=== PATIENT | male | born 2000 | race Native Hawaiian/Other Pacific Islander ===

== ENCOUNTER 2021-10-18 16:52 | Emergency (ER) | payer MEDICAID, SELFPAY ==
[2021-10-18 17:03] VITALS: BP 134/85; PULSE 87; RESP 18; TEMP 36.9; O2SAT 98; BMI 37.7
--- NOTE | 2021-10-18 17:26 | ED_ITS ---
HPI - SOB/Dyspnea General Time Seen by Provider: 17:25 Date Seen: 10/18/21 Chief Complaint: Chest Pain Stated Complaint: Chest Pain Time Seen by Provider: 10/18/21 17:16 History of Present Illness HPI Narrative: Patient is a 21-year-old gentleman who comes in today with a week of nonproductive cough, viscous sputum and chest discomfort. Patient is had no sick exposures but did have COVID in the last several months. He quit smoking recently. He has had no fevers no chills no night sweats no hemoptysis. No other significant symptoms. He states his symptoms are moderate in intensity. Related Data Home oxygen amount: none Home Medications Medication Instructions Recorded Confirmed No Known Home Medications 10/18/21 10/18/21 Allergies Allergy/AdvReac Type Severity Reaction Status Date / Time No Known Drug Allergies Allergy Verified 10/18/21 17:09 Review of Systems Status of ROS: Reports: 10 or more systems reviewed and unremarkable except as noted in History and below [facility] Medical History Asthma Social History Smoking Status: Former smoker Do you use any of these nicotine containing products: None Second hand tobacco smoke exposure: No How often do you have a drink containing alcohol: monthly or less How often do you have six or more drinks on one occasion: Never AUDIT-C Alcohol total score: 1 Non-prescribed substance use: denies use service: No Exam Narrative: Exam Narrative: EXAM GENERAL: Patient appears comfortable and well. EYES: No scleral icterus. ENT: Tympanic membranes and oropharynx normal. THYROID: no thyroid nodules or thyromegaly. LYMPH: No supraclavicular or cervical lymphadenopathy. SKIN: Visible skin seen during exam normal or with benign process only. EXT: No dependent lower extremity pedal edema. HEART: Regular rate and rhythm with no murmurs, rubs, or gallops. LUNGS: Clear to auscultation bilaterally with no crackles or wheezes. ABD: Soft, non tender, non distended. PSYCH: Good eye contact, speech is not pressured. Const: Vital Signs, click to edit/add: Vital Signs - 24 hr 10/18/21 17:03 Temperature 98.5 F Pulse Rate [Right Pulse Oximeter] 87 Respiratory Rate 18 Blood Pressure [Ri ght Upper Arm] 134/85 Pulse Oximetry 98 Course Vital Signs Vital signs: Initial Vital Signs Temperature 98.5 F 10/18/21 17:03 Temperature Source Temporal Artery Scan 10/18/21 17:03 Pulse Rate 87 10/18/21 17:03 Pulse Rhythm 10/18/21 17:03 Respiratory Rate 18 10/18/21 17:03 Blood Pressure 134/85 10/18/21 17:03 Blood Pressure Mean 101 10/18/21 17:03 Blood Pressure Position Sitting 10/18/21 17:03 Pulse Oximetry 98 10/18/21 17:03 Oxygen Delivery Method 10/18/21 17:03 Vital Signs Temperature 98.5 F 10/18/21 17:03 Pulse Rate 87 10/18/21 17:03 Respiratory Rate 18 10/18/21 17:03 Blood Pressure 134/85 10/18/21 17:03 Pulse Oximetry 98 10/18/21 17:03 Temperature 98.5 F 10/18/21 17:03 Pulse Rate 87 10/18/21 17:03 Respiratory Rate 18 10/18/21 17:03 Blood Pressure 134/85 10/18/21 17:03 Pulse Oximetry 98 10/18/21 17:03 Discharge Plan Discharge Clinical Impression: Bronchitis Instructions: Acute Bronchitis (ED) Activity Level: No Restrictions Discharge Diet: Regular Prescriptions: No Action No Known Home Medications 0RF Follow Up/Referrals: Provider,Not a Local [Primary Care Provider] -
== END 2021-10-18 18:06 ==
LOC: ED 18:05
PROVIDERS: Emergency Provider Internal Medicine; PCP Family Medicine
DX: J20.9 Acute bronchitis, unspecified (principal)
CPT/HCPCS: 99282; 99283

== ENCOUNTER 2022-04-16 22:09 | Emergency (ER) | payer MEDICAID, SELFPAY ==
[2022-04-16 22:22] VITALS: BP 157/84; PULSE 82; RESP 18; TEMP 36.6; O2SAT 99; BMI 33.0
--- NOTE | 2022-04-16 22:33 | CRLHL7_ITS ---
For Patients: As a result of the Century Cures Act, medical imaging exams and procedure reports are released immediately into your electronic medical record. You may view this report before your referring provider. If you have questions, please contact your health care provider. Indication: Right ankle pain. Technique: Right ankle 3 views. Comparison: None. Findings: Tiny avulsion fracture of the lateral malleolus. Lateral malleolar soft tissue swelling. Bony mineralization is age appropriate. Tiny avulsion fracture of the lateral malleolus. Dictated by Bhavin Godoy MD @ 04/17/2022 12:05:42 AM (Electronically Signed)
--- NOTE | 2022-04-16 22:40 | ED_ITS ---
HPI - General Adult General Chief complaint: Extremity Pain/Injury, Lower Stated complaint: Right Leg Injury - misstep Time Seen by Provider: 04/16/22 22:18 Source: patient Mode of arrival: ambulatory Limitations: no limitations History of Present Illness HPI narrative: 21-year-old male with no significant chronic medical problems presents the emergency department after he slipped down a flight of stairs. He was carrying an air conditioner unit, a window unit out of his bedroom into storage down stairs. States that he was going down the stairs when he misstepped, causing him to fall down about 2/3 of the flight of stairs. He skidded down on his back and butt and did not hit his head or lose consciousness. He had immediate pain in the right ankle and foot area and has had no other areas of pain since. He was able to get himself up the stairs hopping on his left foot but states that he cannot bear weight on the right foot. He has not tried taking any Tylenol or ibuprofen to help with his symptoms. He denies any intoxication, alcohol or other illicit drugs. No prior history of ankle surgery, no other areas of injury tonight. Denies headache, neurological changes. When asked him to point to the area of maximal pain, he points to the entire ankle and does not localize. ROS is negative for other generalized, musculoskeletal, neurological, skin, hematological concerns. Past medical history he states benign, no major long-term health problems, no recent surgeries, no long-term medications, no allergies. Socially with no impairing substances. Related Data Home Medications Medication Instructions Recorded Confirmed No Known Home Medications 10/18/21 04/16/22 Allergies Allergy/AdvReac Type Severity Reaction Status Date / Time No Known Drug Allergies Allergy Verified 04/16/22 22:25 [facility] Medical History Asthma Surgical History No significant past surgical history Social History Smoking Status: Former smoker Do you use any of these nicotine containing products: None Second hand tobacco smoke exposure: No How often do you have a drink containing alcohol: monthly or less How often do you have six or more drinks on one occasion: Never AUDIT-C Alcohol total score: 1 Non-prescribed substance use: denies use service: No Exam Const: Vital Signs, click to edit/add: Vital Signs - 24 hr 04/16/22 22:22 04/16/22 22:54 04/17/22 00:00 Temperature 97.9 F 97.9 F 97.9 F Pulse Rate [Right Pulse Oximeter] 82 79 Respiratory Rate 18 18 Blood Pressure [Le ft Upper Arm] 157/84 H 145/78 H Pulse Oximetry 99 99 Oxygen Delivery Me thod Room Air Room Air Documenting provider has reviewed patient's vital signs: yes Common normals: no apparent distress and alert General appearance: cooperative and well kempt Orientation/consciousness: Yes awake Other: Appears to be in moderate pain but very cooperative, good historian. HENMT: Common normals: normocephalic Head and scalp: normocephalic Face and sinus: normal facial exam Eye: Common normals: PERRL and EOMs intact bilaterally Pupil: PERRL Other: Normal visual gaze and tracking Neck & C-Spine: Common normals: full ROM Resp: Common normals: normal respiratory effort, no use of accessory muscles and clear to auscultation bilaterally Effort & inspection: able to speak in complete sentences Auscultation: clear to auscultation bilaterally Cardio: Common normals: regular rate, regular rhythm, S1 normal heart sound, S2 normal heart sound, no murmurs and peripheral pulses 2+ throughout Rate: regular rate Rhythm: regular rhythm Heart sounds: S1 normal and S2 normal Peripheral pulses: pulses 2+ throughout Extremity: Other: Left ankle with normal range of motion, no tenderness, no swelling. Left foot normal as well. Right foot with normal range of motion in toes, no tenderness or deformities to the MTP joints. But at the ankle there is marked swelling, bruising and effusion already setting in. The lateral malleolus is more tender than the medial malleolus but both are tender. There is also swelling at the midfoot, dorsally, no tenderness on the plantar surface, heel or ball of the foot. No tenderness at the 5th MTP. Neuro: Sensorium/orientation: awake and alert Speech: speech normal Psych: Appearance: well kempt Attitude: engaged Insight: insight good Judgement: judgment good Skin: Common normals: no rashes or lesions noted General skin exam: no rashes or lesions noted Course Vital Signs Vital signs: Initial Vital Signs Temperature 97.9 F 04/16/22 22:22 Temperature Source Temporal Artery Scan 04/16/22 22:22 Pulse Rate 82 04/16/22 22:22 Pulse Rhythm 04/16/22 22:22 Pulse Strength 3+ Normal 04/16/22 22:22 Respiratory Rate 18 04/16/22 22:22 Blood Pressure 157/84 H 04/16/22 22:22 Blood Pressure Mean 108 04/16/22 22:22 Blood Pressure Position Supine 04/16/22 22:22 Pulse Oximetry 99 04/16/22 22:22 Oxygen Delivery Method 04/16/22 22:22 Vital Signs Temperature 97.9 F 04/16/22 22:22 Pulse Rate 82 04/16/22 22:22 Respiratory Rate 18 04/16/22 22:22 Blood Pressure 157/84 H 04/16/22 22:22 Pulse Oximetry 99 04/16/22 22:22 Oxygen Delivery Method 04/16/22 22:22 Temperature 97.9 F 04/17/22 00:00 Pulse Rate 79 04/17/22 00:00 Respiratory Rate 18 04/17/22 00:00 Blood Pressure 145/78 H 04/17/22 00:00 Pulse Oximetry 99 04/17/22 00:00 Oxygen Delivery Method 04/17/22 00:00 Medical Decision Making MDM Narrative Medical decision making narrative: Strong suspicion for fracture based on presentation. X-rays ordered. He would like to be able to drive himself home, therefore will dose ibuprofen 800 mg p.o. x1 rather than narcotic medication. Of note, it is snowing and the roads arc fairly slick, certainly no impairing substances would be allowed [facility]. He is agreeable to this. Awaiting x-ray. Discussed findings with patient: Appreciate a tiny chip fracture of the fibula, lots of soft tissue swelling which would make me concerned for a ligamentous tear as well. Discussed with patient. Crutches, 2 weeks of nonweightbearing, Ortho follow-up recommended. Work ability note completed. Discussed Tylenol and ibuprofen as needed for pain, he verbalizes understanding and agreement. ortho referral placed Imaging Data Ankle x-ray: My impression: Tiny chip fracture of distal fibula, malleolus area Radiologist's impression: Findings: Tiny avulsion fracture of the lateral malleolus. Lateral malleolar soft tissue swelling. Bony mineralization is age appropriate. Tiny avulsion fracture of the lateral malleolus. Discharge Plan Discharge Clinical Impression: Fibula fracture Patient Disposition: Home, Self-Care Condition: Stable Instructions: Leg Fracture (ED) Additional Instructions: There is a very mild chip fracture in your outer ankle. This is on the nonweightbearing part of the ankle and should heal without difficulty. Based on the amount of swelling and bruising, I do suspect that there is a ligament injury as well. I would not see this on x-ray but can be confirmed on MRI. Because you are otherwise young and healthy, it will likely heal without any other interventions, so I do not recommend that we hall into an MRI at this time. Your given ibuprofen for pain, you may continue taking 600 mg every 6 hours, your next dose is eligible at 5:00 a.m.. You may take Tylenol 1000 mg every 6 hours, any time now for pain. You may remove the brace that we applied and put ice on the outer ankle for 15 minutes every 4 hours while you are awake. It is okay to remove the brace to shower. I want you on crutches when you are up and moving for the next [address] referral for you to follow-up with the orthopedic team. Because of the holiday, they are not in the office today but should call you within a few days to firm up this appointment. They will determine your return to work status. I have given you a form that will be in effect for the next 2 weeks that basically says you can do seated work only. It is your employers duty to find appropriate work for you during your time of injury. They may not have available work and are not required to fulfill paying you if you cannot fulfill your typical duties Activity Level: Light activity, No Weight Bearing and Use Crutches Discharge Diet: Regular Prescriptions: No Action No Known Home Medications Follow Up/Referrals: Rupert Capps MD [Staff Physician] - 2 Weeks (First available Ortho, 2 weeks) Oleg Brady MD [Primary Care Provider] - Stand Alone Forms: [employer] Info Instructions
[2022-04-16 22:54] VITALS: TEMP 36.6
[2022-04-16] MEDS: IBUPROFEN 400 MG TABLET 800 MG PO (22:54)
[2022-04-17] VITALS: BP 145/78; PULSE 79; RESP 18; TEMP 36.6; O2SAT 99
[2022-04-17 01:07] VITALS: BP 145/78; PULSE 79; RESP 18; TEMP 36.6
== END 2022-04-17 01:07 | disposition home or self-care (01) ==
PROVIDERS: Emergency Provider Family Medicine; PCP Family Medicine
DX: S82.64XA Nondisplaced fracture of lateral malleolus of right fibula, initial encounter for closed fracture (principal); W10.9XXA Fall (on) (from) unspecified stairs and steps, initial encounter
CPT/HCPCS: 73610; 99283; 99284; A9270

== ENCOUNTER 2025-03-15 21:07 | Emergency (ER) | payer BC, SELFPAY ==
--- OUTSIDE RECORDS SUMMARY | 2025-03-15 21:08 | XMS_ITS | Clinical Summary ---
Author Organization [facility] Address [address] [place] [id number] Care Team Providers Care Vending Route Driver Name Role Phone Clinic, No Pcp Or Primary Care Provider Unavaila ble Allergies No known active allergies Medications albuterol HFA (PRO-AIR; VENTOLIN; PROVENTIL) 90 mcg/actuation inhalerIndicat ions:Exercise- induced asthma (HC) Inhale 1-2 Puffs by mouth every 4 hours if needed for Shortness of Breath 1st choice (before exercise). 1 Each 1 Active hydrocortisone (ANUSOL-HC SUPPOSITORY) 25 mg suppositoryInd ications:Hemor rhoids, internal Insert 1 Suppository (25 mg) rectally two times daily. 5 Suppository 2 Active psyllium powdIndication s:Hemorrhoids, internal Mix 1 tsp in liquid then take by mouth once daily if needed for Constipation. 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 Overview (08/27/2008): In process of ADHD evaluation Resolved Problems Problem Noted Date Diagnosed Date Resolved Date Depression, major, single episode, severe 06/21/2021 08/08/2022 Immunizations Immunization Administration Dates Next Due COVID-19 vaccine (MebelramaBio NTech 30mcg/0.3mL) PF, MDV 02/25/2021,12/17/2020 DTaP 12/27/2005, 2,01/21/2001,2000,2000 HIB-HepB (Comvax) 11/12/2001,2000,09/22/19 Inactivated Polio Vaccine 12/27/2005,04/2000,2000,2000 Influenza, IIV4 01/29/2019 MMR 12/27/2005,07/29/2001 Pneumococcal conj 7-Valent ( Prevnar 7) 07/29/2001,04/22/2001,01/21/2001,2000,2000 Tdap 12/25/2012 Varicella Vaccine 12/27/2005,07/29/2001 Family History Medical History Relation Name Comments Good Health Father Good Health Mother Diabetes type II Paternal Grandfather Relation Name Status Comments Brother 1 Alive Brother 2 Alive Brother 3 Alive Father Alive Mother Alive Paternal Grandfather Sister Alive Social History Tobacco Use Types Packs/Day Years Used Date Smoking Tobacco: Never Smokeless Tobacco: Never Tobacco Cessation:Counseling Given: Yes Alcohol Use Standard Drinks/Week Comments Yes 0 (1 standard drink = 0.6 oz pur e alcohol) occ PHQ-2 Answer Date Recorded PHQ-2 TOTAL SCORE 5 02/25/2021 Social Connections Answer Date Recorded Do you often feel lonely or isolated from those around you? 0 04/24/2024 Financial Resource Strain Answer Date R ecorded Difficulty of Paying Living Expenses 3 04/24/2024 Difficulty of Paying Living Expenses Not on file 04/24/2024 Food Insecurity Answer Date Recorded Do you worry your food will run out before you are able to buy more? 1 04/24/2024 Transportation Needs Answer Date Record ed Does lack of transportation keep you from medica l appointments? 1 04/24/2024 Does lack of transportation keep you from work, meetings or getting things that you need? 1 04/24/2024 Housing Stability Answer Date Recorded What is your housing situation today? 1 04/24/2024 Utilities Answer Date Recorded Do you have trouble paying f or utilities (for example, heat, electricity, water, phone)? 1 04/24/2024 Sex and Gender Information Value Date Recorded Sex Assigned at Not on file Legal Sex Male 5:43 AM DIRECTOR CRITICAL CARE Gender Identity Not on file Sexual Orientation Not on file Occupation Industry Job Start Date Job End Date Student Not on file Not on file Not on file Obstetrics History Last Filed Vital Signs Vital Sign Reading Time Taken Comments Blood Pressure 139/87 04/24/2024 10:35 AM DIRECTOR CRITICAL CARE Pulse 78 04/24/2024 10:35 AM DIRECTOR CRITICAL CARE Temperature 36.7 C (98 F) 12/21/2021 7:38 AM CDT Respiratory Rate - - Oxygen Saturation 99% 04/24/2024 10: 35 AM DIRECTOR CRITICAL CARE Inhaled Oxygen Concentration - - Weight 135.5 kg (298 lb 12.8 oz) 2024 10:35 AM DIRECTOR CRITICAL CARE Height 175.9 cm (5' 9.25) 08/08/2022 1:10 PM CD T Body Mass Index 43.8 08/08/2022 1:10 PM CDT Plan of Treatment Upcoming Encounters Date Type Department Care Team (Late st Contact Info) Description 03/18/2025 2:40 PM DIRECTOR CRITICAL CARE Office Visit [facility] [address] [place] [address] Braeden Vincent MD [address] [place] [address] 03/23/2025 8:55 AM DIRECTOR CRITICAL CARE Office Visit [facility] [address] [place] [address] Chio Hernandez DO [address] [place] [address] Health Maintenance Due Date Last Done Comments HIV for age 15-65 07/20/2015 HPV series for age 9-45 (1 - Male 3-dose series) 07/20/2015 Hepatitis C screening for age 18-79 2018 Depression screening for age 12+ 02/25/2022 02/25/2021, 01/29/2019, 01/29/2019 Tetanus booster 12/25/2022 12/25/2012 BMI (ht and wt on same day) for age 18+ 08/09/2023 08/08/2022, 12/21/2021, 10/28/2021, Additional history exists Influenza Vaccine (#1) 2024 01/29/2019 RSV vaccine for adults or (1 - 1-dose 75+ series) 07/20/2075 Pneumococcal series for age 6-49 Aged Out 07/29/2001, 04/22/2001, 01/21/2001, Additional history exists No longer eligible based on patient's age to complete this topic Hepatitis B series for 19+ Completed 11/12, 2000, 2000 Care Teams Vending Route Driver Relationship Specialty Start Date End Date Clinic, No Pcp Or . PCP - General 06/21/21
[2025-03-15 21:19] VITALS: BP 145/93; PULSE 80; RESP 16; TEMP 36.1; O2SAT 98; BMI 37.0
[2025-03-15] MEDS: IBUPROFEN 200 MG TABLET 600 MG PO (21:52)
[2025-03-15 22:14] LABS: Hematocrit* 45.1 % (37.0-53.0); Hemoglobin* 15.0 gm/dL (13.5-17.5); Immature Granulocytes Abs Auto 0.02 K/uL (0.00-0.30); Immature Granulocytes Pct Auto 0.2 %; Lymphocytes Absolute Auto 2.22 K/uL (0.90-2.90); Mean Corpuscular HGB Conc 33 gm/dL (32-36); Mean Corpuscular Hemoglobin 31 pg (26-34); Mean Corpuscular Volume 92 fL (80-100); RDW Coefficient of Variation % 11.3 % (11.5-15.5); Red Blood Count* 4.92 m/uL (4.30-5.90); White Blood Count* 9.28 K/uL (4.50-11.00)
[2025-03-15 22:16] LABS: Slide Review Reflex No
[2025-03-15 22:26] LABS: Albumin* 5.2 g/dL (3.3-5.0); Chloride* 103 mmol/L (96-114)
[2025-03-15 22:27] LABS: Potassium* 3.8 mmol/L (3.6-5.1); Sodium* 141 mmol/L (135-149)
[2025-03-15 22:29] LABS: Alanine Aminotransferase* 55 U/L (4-50); Alkaline Phosphatase* 101 U/L (40-150); Anion Gap 15 mEq/L (7-15); Aspartate Amino Transferase* 32 U/L (12-35); Bilirubin Total* 0.7 mg/dL (0.1-1.5); Blood Urea Nitrogen* 11 mg/dL (5-24); Carbon Dioxide* 23 mmol/L (20-32); Creatinine* 0.8 mg/dL (0.5-1.5); Est. Creatinine Clearance* 151.65; Estimated Glomerular Filt Rate 127 ml/min; Total Protein* 9.8 g/dL (6.0-8.3)
[2025-03-15 22:30] LABS: Appearance Urine Clear (Clear)
[2025-03-15 22:30] LABS: Calcium* 9.9 mg/dL (8.4-10.6); Glucose* 116 mg/dL (60-115)
[2025-03-15 23:24] VITALS: PULSE 78; RESP 16; O2SAT 99
--- NOTE | 2025-03-15 23:27 | ED_ITS ---
HPI - General Adult General Chief complaint: Abdominal Pain Stated complaint: abdominal pain Time Seen by Provider: 03/15/25 21:34 Source: patient Mode of arrival: ambulatory Limitations: no limitations History of Present Illness HPI narrative: 24-year-old male presents to the emergency department with complaints of abdominal pain since Sunday. No fever. No trauma or injury. Started when he was lifting heavy objects at work repeatedly. Pain is in the left upper quadrant of the abdomen, worse with movement. No vomiting, no bloody stools. Slightly decreased appetite but is able to eat. He reports that he has not use any alcohol for 2 months, no prior abdominal surgeries. He reports that he has had some intermittent symptoms for 6 years. It is worse with attempting to set up, but is better once he is up right rather than when using his abdominal muscles. No dysuria. Tried taking 1 Tylenol tablet yesterday with temporary relief. It sounds like he has had a workup for this in the past in [place] that was unrevealing. He does have a primary care appointment in 2 days to discuss this further. There were no truly alarming symptoms that bring him to the ED tonight. He reports benign past medical history. No major long-term health problems. He does have some ongoing neck issues, is having those worked up outpatient as well. No new injury or trauma. Denies allergies. Does smoke marijuana. ROS is notable for the musculoskeletal in abdominal symptoms as above, otherwise denies times 12 systems. Related Data Home Medications ?Medication ?Instructions ?Recorded ?Confirmed acetaminophen 500 mg tablet 500 mg PO Q6H PRN 04/25/22 04/25/22 (Tylenol Extra Strength) Allergies Allergy/AdvReac Type Severity Reaction Status Date / Time No Known Drug Allergies Allergy Verified 03/15/25 21:24 [facility] Medical History Asthma ?J45.909 - Unspecified asthma, uncomplicated (ICD-10) Surgical History No significant past surgical history Family History Grandfather Diabetes Grandmother Diabetes Social History Smoking Status: Former smoker (quit 02/04/21) Do you use any of these nicotine containing products: None Second hand tobacco smoke exposure: No How often do you have a drink containing alcohol: monthly or less How often do you have six or more drinks on one occasion: Never AUDIT-C Alcohol total score: 1 Non-prescribed substance use: denies use service: No Exam Const: Vital Signs, click to edit/add: Vital Signs - 24 hr 03/15/25 21:19 Temperature 97.0 F L Pulse Rate [Right Pulse Oximeter] 80 Respiratory Rate 16 Blood Pressure [Ri ght Upper Arm] 145/93 H Pulse Oximetry 98 Oxygen Delivery Me thod Room Air Documenting provider has reviewed patient's vital signs: yes Common normals: no apparent distress General appearance: comfortable HENMT: Common normals: normocephalic, moist oral mucous membranes and oropharynx normal Head and scalp: normocephalic Mouth: oral and palatal mucosa normal Throat: posterior oropharynx normal Eye: Common normals: conjunctivae normal General eye: normal appearance of both eyes Conjunctiva: conjunctiva(e) normal Neck & C-Spine: Common normals: no lymphadenopathy General: normal visual inspection Resp: Common normals: normal respiratory effort, no use of accessory muscles and clear to auscultation bilaterally Effort & inspection: able to speak in complete sentences Auscultation: clear to auscultation bilaterally Cardio: Common normals: regular rate, S1 normal heart sound, S2 normal heart sound and no murmurs Rate: regular rate Heart sounds: S1 normal and S2 normal GI: Common normals: Normal to inspection, nondistended, normoactive bowel sounds present, soft to palpation, no hepatosplenomegaly and no masses Palpation: soft and no hepatosplenomegaly Other: Based on body habitus, organs are difficult to palpate but no obvious organomegaly. Has tenderness to engagement of the rectus abdominal muscles that reproduces his described symptoms. No mass. No guarding. Back & Pelvis: Common normals: thoracic and lumbar spine normal to inspection Extremity: Common normals: normal to inspection Psych: Appearance: grossly normal Attitude: engaged Insight: fair Judgement: fair Skin: Common normals: no rashes or lesions noted General skin exam: no rashes or lesions noted Course Course ED Course: 24-year-old male with abdominal pain reproducible with palpation suggestive of abdominal wall strain. Cannot exclude more significant pathology like g astritis, pancreatitis, bowel obstruction, colitis, kidney infection, amongst others. He does seem anxious but nontoxic. Patient will be given ibuprofen 600 mg p.o. x1 and will have basic intra-abdominal labs to determine if there is any more serious pathology. If these are suggestive of more worrisome process, would consider imaging. Update: Labs are quite reassuring. Patient is having some improvement with the ibuprofen. Counseled patient on findings, suggestive of abdominal wall pain. He does notice that symptoms are worse with lifting heavy things at work. I have encouraged him to continue strength training and especially focusing on core strengthening. Try lifting more with his legs as opposed to his stomach and back. Counseled on proper dose of Tylenol and ibuprofen to help with symptom control. Keep his follow-up appointment for Sunday. Alarm symptoms reviewed that would warrant ED re-evaluation. He verbalizes understanding and agreement. Vital Signs Vital signs: Initial Vital Signs Temperature 97.0 F L 03/15/25 21:19 Temperature Source Temporal Artery Scan 03/15/25 21:19 Pulse Rate 80 03/15/25 21:19 Pulse Rhythm Regular 03/15/25 21:19 Pulse Strength 3+ Normal 03/15/25 21:19 Respiratory Rate 16 03/15/25 21:19 Blood Pressure 145/93 H 03/15/25 21:19 Blood Pressure Mean 110 H 03/15/25 21:19 Blood Pressure Position Supine 03/15/25 21:19 Pulse Oximetry 98 03/15/25 21:19 Oxygen Delivery Method Room Air 03/15/25 21:19 Vital Signs Temperature 97.0 F L 03/15/25 21:19 Pulse Rate 80 03/15/25 21:19 Respiratory Rate 16 03/15/25 21:19 Blood Pressure 145/93 H 03/15/25 21:19 Pulse Oximetry 98 03/15/25 21:19 Oxygen Delivery Method Room Air 03/15/25 21:19 Temperature 97.0 F L 03/15/25 21:19 Pulse Rate 80 03/15/25 21:19 Respiratory Rate 16 03/15/25 21:19 Blood Pressure 145/93 H 03/15/25 21:19 Pulse Oximetry 98 03/15/25 21:19 Oxygen Delivery Method Room Air 03/15/25 21:19 Medications Administered Medications: Discontinued Medications Generic Name Dose Route Start Last Admin Trade Name Roque PRN Reason Stop Dose Admin Ibuprofen 600 mg 03/15/25 21:47 03/15/25 21:52 Ibuprofen 200 Mg Tablet PO 03/15/25 21:48 600 mg ONCE ONE Administration Medical Decision Making Lab Data Lab results reviewed: Yes I reviewed the patient's lab results Lab results narrative: No leukocytosis, normal hemoglobin. Normal kidney function and electrolytes. Serum protein is normal not suggestive of malnutrition. Inflammatory markers are normal. Lipase normal. Labs: Lab Results 03/15/25 03/15/25 Range/Units 21:57 22:25 WBC 9.28 (4.50-11.00) K/uL RBC 4.92 (4.30-5.90) m/uL Hgb 15.0 (13.5-17.5) gm/dL Hct 45.1 (37.0-53.0) % MCV 92 (80-100) fL MCH 31 (26-34) pg MCHC 33 (32-36) gm/dL RDW Coeff of [place] 11.3 L (11.5-15.5) % Plt Count 401 (140-440) K/uL Neut % (Auto) 69.8 (42.0-72.0) % Lymph % (Auto) 23.9 (20-44) % [place] % (Auto) 5.5 (0.0-11.0) % Eos % (Auto) 0.2 (0.0-7.0) % Baso % (Auto) 0.4 (0.0-3.0) % Neut # (Auto) 6.47 (1.7-7.0) K/uL Lymph # (Auto) 2.22 (0.90-2.90) K/uL [place] # (Auto) 0.50 (0.00-0.90) K/UL Eos # (Auto) 0.02 (0.00-0.50) K/uL Baso # (Auto) 0.04 (0.00-0.30) K/uL Abs Immat Gran (auto) 0.02 (0.00-0.30) K/uL Imm/Tot Granulo (auto) 0.2 % Sodium 141 (135-149) mmol/L Potassium 3.8 (3.6-5.1) mmol/L Chloride 103 (96-114) mmol/L Carbon Dioxide 23 (20-32) mmol/L Anion Gap 15 (7-15) mEq/L BUN 11 (5-24) mg/dL Creatinine 0.8 (0.5-1.5) mg/dL Estimated Creat Clear 151.65 Estimated GFR 127 ml/min Glucose 116 H (60-115) mg/dL Calcium 9.9 (8.4-10.6) mg/dL Total Bilirubin 0.7 (0.1-1.5) mg/dL AST 32 (12-35) U/L ALT 55 H (4-50) U/L Alkaline Phosphatase 101 (40-150) U/L C-Reactive Protein 0.5 (0.5-1.0) mg/dL Total Protein 9.8 H (6.0-8.3) g/dL Albumin 5.2 H (3.3-5.0) g/dL Lipase 77 (23-300) U/L Urine Color Yellow (Yellow) Urine Appearance Clear (Clear) Urine pH 5.5 (5.0-8.5) Ur Specific [place] 1.025 (1.000-1.030) Urine Protein 2+ A (Negative) Urine Glucose (UA) Negative (Negative) Urine Ketones 1+ A (Negative) Urine Blood Trace-intact A (Negative) Urine Nitrite Negative (Negative) Urine Bilirubin 1+ A (Negative) Urine Urobilinogen 0.2 (0.2-1.0) Ur Leukocyte Esterase Negative (Negative) Urine RBC 0-2 (0-2) Urine WBC 0-2 (0-5) Ur Squamous Epith Cells Few (None-Few) Amorphous Sediment Few A (None) Urine Bacteria None (None) Urine Mucus Moderate A (None) Discharge Plan Discharge Clinical Impression: Abdominal wall pain Patient Disposition: Home, Self-Care Condition: Stable Instructions: Abdominal Pain (ED) Additional Instructions: As we discussed, your abdominal pain seems to be coming from the muscular layer of the front abdominal wall. All of your blood work looks reassuring. There are no signs of pancreatitis, infection, liver problems, kidney issues, dehydration or other abnormality. It is okay for you to use Tylenol 1000 mg every 6 hours and or ibuprofen 600 mg every 6 hours as needed for discomfort. You have no work restrictions at this time and are clear to return to full duty. Please keep your primary care appointment for Sunday, there are more tests and treatment options that they can explore with you that are not available to me in the emergency room. You should come to emergency room if you have high fever accompanied by severe pain, vomiting blood, lots of bloody stools, severe weakness or other alarming symptoms. Activity Level: No Restrictions Discharge Diet: Regular Prescriptions: No Action acetaminophen [Tylenol Extra Strength] 500 mg tablet 500 mg PO Q6H PRN Follow Up/Referrals: NESTOR LANGFORD DO [Primary Care Provider, Family Practice] Stand Alone Forms: [employer] Info Instructions
== END 2025-03-15 23:34 | disposition home or self-care (01) ==
PROVIDERS: Emergency Provider Family Medicine; PCP Student in an Organized Health Care Education/Training Program
DX: S39.011A Strain of muscle, fascia and tendon of abdomen, initial encounter (principal); X50.0XXA Overexertion from strenuous movement or load, initial encounter
CPT/HCPCS: 36415; 80053; 81001; 81003; 83690; 85025; 86140; 99284; A9270